=== PATIENT | female | born 1955 | race Caucasian/White ===

== ENCOUNTER 2023-07-28 09:09 | Outpatient (CLI) | payer MEDICARE, SELFPAY ==
--- NOTE | ~2023-07-28 | US_ITS ---
Renal-Bladder ultrasound Clinical History: Left renal cyst Technique: Real-time sonographic imaging of the kidneys and urinary bladder was performed. Findings: The right kidney measures 9.9 cm in length and the left kidney measures 12.0 cm. There is n o hydronephrosis or renal calculus identified. Renal cortical echogenicity is within normal limits. T here is a probable solid left renal mass measuring 6.9 x 5.1 x 4.4 cm.. The urinary bladder is moderately distended at the time of this exam. No intraluminal echoes are iden tified. No abnormal wall thickening is seen. Impression: Solid appearing 6.9 x 5.1 x 4.4 cm left renal mass. This is suspicious for neoplastic lesion until pr oven otherwise. Pre and postcontrast CT or MR abdomen recommended to further evaluate. Reviewed, dictated and finalized at [facility]. Impression: Solid appearing 6.9 x 5.1 x 4.4 cm left renal mass. This is suspicious for neop lastic lesion until proven otherwise. Pre and postcontrast CT or MR abdomen rec ommended to further evaluate.
--- NOTE | ~2023-07-28 | US_ITS ---
Limited Abdominal Sonogram: Real-time sonographic imaging of the right upper quadrant was performed. Clinical History: Left renal cyst Findings: The liver appears mildly heterogeneous, with no evidence of mass lesion or bile duct dilat ation. Main portal vein demonstrates normal direction of flow. The gallbladder is poorly delineated, probably relatively contracted. The common bile duct measures 4 mm. The visualized pancreas, aorta, and IVC are unremarkable. Impression: Poor evaluation of the gallbladder, which is relatively contracted. Questionable gallstones. Probable fatty infiltration of liver. Reviewed, dictated and finalized at [facility]. Impression: Poor evaluation of the gallbladder, which is relatively contracted. Questionabl e gallstones. Probable fatty infiltration of liver.
== END 2023-07-28 09:10 ==
LOC: GOSHIMG 09:11
PROVIDERS: PCP Internal Medicine; Visit Provider Internal Medicine
DX: N28.1 Cyst of kidney, acquired (principal)
CPT/HCPCS: 76705; 76775

== ENCOUNTER 2023-08-07 15:31 | Outpatient (CLI) | payer MEDICARE, SELFPAY ==
[2023-08-07 16:18] LABS: Basophils Absolute Auto 0.1 K/mm3 (0.0-0.1); Eosinophils Absolute Auto 0.4 K/mm3 (0-0.3); Eosinophils Percent Auto 7.6 % (0-4.4); Hematocrit 33.5 % (37.0-47.0); Hemoglobin 9.7 g/dL (12.0-15.0); Immature Granulocyte Absolute 0.01 K/mm3 (0.00-0.031); Immature Granulocyte Percent A 0.2 % (0-0.5); Lymphocytes Absolute Auto 1.37 K/mm3 (0.9-3.2); Lymphocytes Percent Auto 26.1 % (18.3-44.2); Mean Corpuscular Hemoglobin 23.1 pg (26-34); Mean Corpuscular Volume 79.8 fl (80-100); Mean Platelet Volume 11.2 fl (7.4-10.4); Monocytes Absolute Auto 0.4 K/mm3 (0.1-0.6); Monocytes Percent Auto 8.4 % (2.6-8.5); Neutrophils Percent Auto 56.7 % (45.5-73.1); Platelet Count Result 260 k/mm3 (150-375); Red Cell Distribution Width 18.1 % (11.5-14.5); White Blood Count 5.3 K/mm3 (4.5-10.0)
[2023-08-07 16:25] LABS: Platelet Estimate Adequate (Adequate)
[2023-08-07 16:27] LABS: Anisocytosis 1+; Hypochromasia 1+; Schistocytes None Seen
[2023-08-07 18:53] LABS: Iron 60 ug/dL (37-170)
[2023-08-07 18:55] LABS: Alanine Aminotransferase 17 U/L (6-35); Albumin Level 3.8 g/dL (3.5-5.1); Alkaline Phosphatase 169 U/L (38-126); Anion Gap 8 mmol/L (4-12); Aspartate Amino Transferase 31 U/L (14-36); Bilirubin,Total 0.4 mg/dL (0.2-1.3); Blood Urea Nitrogen 27 mg/dL (7-17); Calcium 8.5 mg/dL (8.4-10.2); Carbon Dioxide 19 mmol/L (22-30); Chloride 114 mmol/L (98-107); Estimated Glomerular Filt Rate 45; Glucose 95 mg/dL (65-110); Lactate Dehydrogenase 204 U/L (120-246); Potassium 4.7 mmol/L (3.4-5.0); Sodium 141 mmol/L (137-145)
[2023-08-07 19:03] LABS: Percent Iron Saturation 14 % (20-50)
[2023-08-07 19:30] LABS: Ferritin 7.83 ng/mL (11.1-264)
[2023-08-07 19:54] LABS: Vitamin D 25 Hydroxy 27.4 ng/mL
[2023-08-07 20:09] LABS: Folic Acid > 20.0 ng/mL (2.76->20)
[2023-08-10 07:52] LABS: Methylmalonic Acid 326 nmol/L (69-390)
[2023-08-14 16:15] LABS: Soluble Transferrin Receptor 3.15 mg/L (0.76-1.76)
== END 2023-08-07 15:32 | disposition home or self-care (01) ==
PROVIDERS: PCP Internal Medicine; Visit Provider Nurse Practitioner Family
DX: D50.9 Iron deficiency anemia, unspecified (principal); D51.9 Vitamin B12 deficiency anemia, unspecified; E55.9 Vitamin D deficiency, unspecified
CPT/HCPCS: 36415; 80053; 82306; 82607; 82728; 82746; 83540; 83550; 83615; 83921; 84238; 85025